=== PATIENT | female | born 1945 | race Caucasian/White ===

== ENCOUNTER → 2024-03-27 | Outpatient (REF) | payer OTHER, MEDICAID ==
[2024-03-27 17:10] LABS: APPEARANCE, URINE HAZY (CLEAR); BACTERIA, URINE AUTO 1+ (NEGATIVE); BILIRUBIN, URINE AUTO NEGATIVE (NEGATIVE); BLOOD, URINE BLOOD NEGATIVE (NEGATIVE); CALCIUM OXALATE CRYSTALS MODERATE; COLOR, URINE AMBER (YELLOW); GLUCOSE, URINE (UA) AUTO NEGATIVE (NEGATIVE); KETONE, URINE AUTO TRACE mg/dL (NEGATIVE); LEUKOCYTE ESTERASE, URINE AUTO 3+ (NEGATIVE); MUCUS, URINE SMALL (NEGATIVE); NITRITE, URINE AUTO NEGATIVE (NEGATIVE); PROTEIN, URINE AUTO 1+ mg/dL (NEGATIVE); RBC, URINE AUTO 4 /HPF (0-3); SQUAMOUS EPITHELIAL CELL UR AU 2 /HPF (0-6); UROBILINOGEN, URINE AUTO 0.2 mg/dL (0.0-2.0); WBC, URINE AUTO 10 /HPF (0-3)
[2024-03-27 17:35] LABS: MAU/CREAT RATIO 22.7 MCG/MG (0.0-30.0)
[2024-03-27 17:59] LABS: ALBUMIN 3.4 G/DL (3.2-5.2); ALKALINE PHOSPHATASE 88 U/L (46-116); ALT/SGPT 14 U/L (7.0-40); AST/SGOT 16 U/L (<34); BASO # 0.1 10^3/uL (0.0-0.2); BILIRUBIN,TOTAL 0.6 MG/DL (0.3-1.2); BLOOD UREA NITROGEN 16 MG/DL (9-23); CALCIUM LEVEL 9.2 MG/DL (8.3-10.6); CARBON DIOXIDE LEVEL 25 MMOL/L (20-31); CHLORIDE LEVEL 105 MMOL/L (98-107); CHOLESTEROL LEVEL 121 MG/DL (<200); CHOLESTEROL RISK RATIO 2.91 (<5); CREATININE FOR GFR 0.77 MG/DL (0.55-1.30); EOS # 0.1 10^3/uL (0.0-0.5); EOS % 1.7 % (0.0-3.0); GLOMERULAR FILTRATION RATE > 60.0 (>39); GLUCOSE, FASTING 75 MG/DL (74-106); HDL CHOLESTEROL 41.5 MG/DL (>40); HEMATOCRIT 36.7 % (36.0-47.0); HEMOGLOBIN 11.7 g/dl (12.0-15.5); LDL CHOLESTEROL 30.3 MG/DL (<100); LYMPH # 1.6 10^3/uL (1.5-5.0); LYMPH % 21.9 % (24.0-44.0); MEAN CORPUSCULAR HEMOGLOBIN 28.4 pg (27.0-33.0); MEAN CORPUSCULAR HGB CONC 31.9 g/dl (32.0-36.5); MEAN CORPUSCULAR VOLUME 89.1 fl (80.0-96.0); MONO # 0.6 10^3/uL (0.0-0.8); MONO % 7.9 % (2.0-8.0); NEUTROPHILS # 4.8 10^3/uL (1.5-8.5); NEUTROPHILS % 67.2 % (36.0-66.0); NON-HDL-C 79.5 MG/DL; PLATELET COUNT, AUTOMATED 295 10^3/uL (150-450); POTASSIUM SERUM 4.9 MMOL/L (3.5-5.1); RED BLOOD COUNT 4.12 10^6/uL (4.00-5.40); SODIUM LEVEL 135 MMOL/L (136-145); TOTAL PROTEIN 6.5 G/DL (5.7-8.2); TRIGLYCERIDES LEVEL 246 MG/DL (<150); WHITE BLOOD COUNT 7.2 10^3/uL (4.0-10.0)
[2024-03-27 18:03] LABS: TOTAL 25(OH) VITAMIN D 32.8 NG/ML (20.0-100.0)
[2024-03-27 18:31] LABS: HEMOGLOBIN A1c 5.4 % (4.0-6.0)
== END ==
LOC: M LAB REF 16:41
PROVIDERS: ATTEND Physician Assistant
DX: I10 Essential (primary) hypertension (principal); Z11.9 Encounter for screening for infectious and parasitic diseases, unspecified; E66.9 Obesity, unspecified; E55.9 Vitamin D deficiency, unspecified; Z79.4 Long term (current) use of insulin

== ENCOUNTER → 2024-06-30 | Outpatient (RCR) | payer MEDICAID, MEDICARE, OTHER | LOC: M PT 06-16 09:28 | PROVIDERS: ATTEND Physician Assistant | DX: R26.89 Other abnormalities of gait and mobility (principal); R26.81 Unsteadiness on feet ==

== ENCOUNTER 2024-07-17 14:27 | Outpatient (RCR) | payer MEDICARE | END 2024-07-31 | LOC: M PT 14:27 | PROVIDERS: ATTEND Physician Assistant | DX: R26.89 Other abnormalities of gait and mobility (principal); R26.81 Unsteadiness on feet ==

== ENCOUNTER 2024-08-15 11:15 | Outpatient (RCR) | payer MEDICARE ==
[2024-08-19] MEDS ORDERED: EQL50TAB2 PO (10:46)
[2024-08-19] MEDS ORDERED: CARB25TA9 PO (10:46)
[2024-08-19] MEDS ORDERED: BENEPOW18 PO (10:46)
[2024-08-19] MEDS ORDERED: BUSP5TA PO (10:46)
[2024-08-19] MEDS ORDERED: JANU50TA8 PO (10:46)
[2024-08-19] MEDS ORDERED: BENZ0.5T2 PO (10:46)
[2024-08-19] MEDS ORDERED: CARV6.25 PO (10:46)
[2024-08-19] MEDS ORDERED: OCUVTAB4 PO (10:46)
[2024-08-19] MEDS ORDERED: LIPI20TA PO (10:46)
[2024-08-19] MEDS ORDERED: ROPI1TAB73 PO (10:46)
[2024-08-19] MEDS ORDERED: CALC600T60 PO (10:46)
[2024-08-19] MEDS ORDERED: LAMO200T3 PO (10:46)
[2024-08-19] MEDS ORDERED: QUET1TAB17 PO (10:46)
[2024-08-19] MEDS ORDERED: ATOR40TA75 PO (10:46)
[2024-08-19] MEDS ORDERED: VITA50TA43 PO (10:46)
[2024-08-19] MEDS ORDERED: NIFE1TAB51 PO (10:46)
[2024-08-19] MEDS ORDERED: ACET-897 PO (10:46)
[2024-08-19] MEDS ORDERED: PROZ40CA PO (10:46)
[2024-08-19] MEDS ORDERED: VALS1TAB66 PO (10:46)
[2024-08-19] MEDS ORDERED: TRAZ-252 PO (10:46)
== END 2024-08-30 ==
LOC: M PT 11:15
PROVIDERS: ATTEND Physician Assistant
DX: G20.C Parkinsonism, unspecified (principal); M54.50 Low back pain, unspecified; R25.1 Tremor, unspecified; R26.89 Other abnormalities of gait and mobility

== ENCOUNTER 2024-08-20 08:52 | Day surgery (SDC) | payer MEDICARE, OTHER ==
[~2024-08-20] VITALS: Ht 170.2 cm; Wt 82.1 kg
[~2024-08-20 08:52] MED LIST: ACET-897 PO; ATOR40TA75 PO; BENEPOW18 PO; BENZ0.5T2 PO; BUSP5TA PO; CALC600T60 PO; CARB25TA9 PO; CARV6.25 PO; EQL50TAB2 PO; JANU50TA8 PO; LAMO200T3 PO; LIPI20TA PO; NIFE1TAB51 PO; OCUVTAB4 PO; PROZ40CA PO; QUET1TAB17 PO; ROPI1TAB73 PO; TRAZ-252 PO; VALS1TAB66 PO; VITA50TA43 PO
[2024-08-20] MEDS: TROPICAMIDE 1% OPHTH SOLN 15ML OD SCH (10:01)
[2024-08-20] MEDS: OFLOXACIN 0.3 % (OCUFLOX) OPTH SOL 5ML OD ONE (10:01)
[2024-08-20] MEDS: PHENYLEPHRINE 2.5% OPHTH SOL 2ML OD SCH (10:01)
[2024-08-20] MEDS: LIDOCAINE 3.5 % 1ML OPHTH TOPICAL GEL OU ONE (10:01)
[2024-08-20] MEDS: PHENYLEPHRINE 10% OPHTH SOL 5ML OD PRN (10:01)
[2024-08-20] MEDS: ATROPINE SULFATE 1% OPHTH SOLN 2ML BTL OD SCH (10:01)
[2024-08-20] MEDS ORDERED: MIDAZOLAM INJ 2MG/2ML VIAL As Ordered ONE (10:25)
[2024-08-20] MEDS ORDERED: fentaNYL 100 MCG/2 ML INJECTION As Ordered ONE (10:25)
[2024-08-20] MEDS: CEFUROXIME 1MG/0.1ML INTRACAMERAL INJ As Ordered ONE (11:28)
[2024-08-20] MEDS: BSS IRRIG/VANCO(10MG)/TOBRA(5MG)/EPINEPH(1:1000-0.5CC)500ML BAG-ORONLY As Ordered ONE (11:28)
[2024-08-20] MEDS: LIDOCAINE 1% SDV 5ML VIAL As Ordered ONE (11:28)
[2024-08-20 11:45] VITALS: BP 160/73; TEMP 97.5; O2SAT 96
== END 2024-08-20 12:23 | disposition home or self-care (01) ==
LOC: M SDC 08:52
PROVIDERS: ATTEND Ophthalmology
DX: H25.11 Age-related nuclear cataract, right eye (principal); E03.9 Hypothyroidism, unspecified; I10 Essential (primary) hypertension; K76.0 Fatty (change of) liver, not elsewhere classified; G43.909 Migraine, unspecified, not intractable, without status migrainosus; Z79.890 Hormone replacement therapy; Z79.899 Other long term (current) drug therapy; Z87.891 Personal history of nicotine dependence; Z88.8 Allergy status to other drugs, medicaments and biological substances; Z91.048 Other nonmedicinal substance allergy status; Z88.7 Allergy status to serum and vaccine; Z86.16 Personal history of COVID-19
CPT/HCPCS: 66984; 92015; J0697; J2250; J3010; V2632

== ENCOUNTER 2024-09-10 09:00 | Day surgery (SDC) | payer MEDICARE, OTHER ==
[~2024-09-10] VITALS: Ht 171.4 cm; Wt 81.6 kg
[~2024-09-10 09:00] MED LIST changes: +MIDAZOLAM INJ 2MG/2ML VIAL As Ordered ONE; +PHENYLEPHRINE 10% OPHTH SOL 5ML OS PRN
[2024-09-10] MEDS: OFLOXACIN 0.3 % (OCUFLOX) OPTH SOL 5ML OS ONE (10:25)
[2024-09-10] MEDS: LIDOCAINE 3.5 % 1ML OPHTH TOPICAL GEL OU ONE (10:25)
[2024-09-10] MEDS: TROPICAMIDE 1% OPHTH SOLN 15ML OS SCH (10:36)
[2024-09-10] MEDS: CYCLOPENTOLATE 1% OPHTH SOLN 2ML BTL OS SCH (10:36)
[2024-09-10] MEDS: PHENYLEPHRINE 2.5% OPHTH SOL 2ML OS SCH (10:36)
[2024-09-10] MEDS ORDERED: GLUCOSE 4 GM CHEW PO PRN (10:45)
[2024-09-10] MEDS ORDERED: GLUCAGON INJ 1MG VIAL SC PRN (10:45)
[2024-09-10] MEDS ORDERED: INSULIN LISPRO (NovoLOG) PER UNIT SC PRN (10:45)
[2024-09-10] MEDS ORDERED: DEXTROSE 50% 50ML SYRINGE IV PRN (10:45)
[2024-09-10] MEDS: BSS IRRIG/VANCO(10MG)/TOBRA(5MG)/EPINEPH(1:1000-0.5CC)500ML BAG-ORONLY As Ordered ONE (12:36)
[2024-09-10] MEDS: LIDOCAINE 1% SDV 5ML VIAL As Ordered ONE (12:37)
[2024-09-10] MEDS: CEFUROXIME 1MG/0.1ML INTRACAMERAL INJ As Ordered ONE (12:37)
[2024-09-10 12:50] VITALS: BP 179/75; TEMP 96.9; O2SAT 97
== END 2024-09-10 13:10 | disposition home or self-care (01) ==
LOC: M SDC 09:00
PROVIDERS: ATTEND Ophthalmology
DX: E11.36 Type 2 diabetes mellitus with diabetic cataract (principal); H25.12 Age-related nuclear cataract, left eye; I10 Essential (primary) hypertension; E78.00 Pure hypercholesterolemia, unspecified; G47.30 Sleep apnea, unspecified; Z79.899 Other long term (current) drug therapy; Z79.84 Long term (current) use of oral hypoglycemic drugs; Z98.84 Bariatric surgery status; Z90.89 Acquired absence of other organs; Z88.5 Allergy status to narcotic agent; Z88.2 Allergy status to sulfonamides; Z88.8 Allergy status to other drugs, medicaments and biological substances
CPT/HCPCS: 66984; 92015; J0697; J2250; V2632

== ENCOUNTER → 2025-05-10 | Outpatient (CLI) | payer MEDICARE, OTHER ==
[~2025-05-10] MED LIST changes: -EQL50TAB2 PO; -MIDAZOLAM INJ 2MG/2ML VIAL As Ordered ONE; -PHENYLEPHRINE 10% OPHTH SOL 5ML OS PRN; +VITA1TAB82 PO
== END ==
LOC: M RAD 10:55
PROVIDERS: ATTEND Student in an Organized Health Care Education/Training Program
DX: M54.50 Low back pain, unspecified (principal)

== ENCOUNTER 2025-05-20 07:59 | Emergency (ER) | payer MEDICARE, OTHER ==
[~2025-05-20] VITALS: Ht 171.4 cm; Wt 86.4 kg
[2025-05-20] MEDS ORDERED: TRAZ-186 PO (08:56)
[2025-05-20] MEDS ORDERED: SERO1TAB3 PO (08:56)
[2025-05-20] MEDS ORDERED: LANTINJ4 SC (08:57)
[2025-05-20 10:30] VITALS: BP 135/78
[2025-05-20] MEDS: ACETAMINOPHEN *IV* 1,000 MG in IV 1 EA IV ONE (10:31)
[2025-05-20] MEDS: METHOCARBAMOL 1,000 MG/10 ML VIAL IV ONE (10:31)
[2025-05-20 11:40] VITALS: O2SAT 97
[2025-05-20] MEDS: MORPHINE 4 MG/ML 1 ML VIAL IV ONE (11:40)
[2025-05-20 11:46] VITALS: TEMP 97.5
== END 2025-05-20 12:44 | disposition home or self-care (01) ==
LOC: M ED 07:59
DX: M48.062 Spinal stenosis, lumbar region with neurogenic claudication (principal); E11.9 Type 2 diabetes mellitus without complications; I10 Essential (primary) hypertension; Z98.84 Bariatric surgery status; Z88.2 Allergy status to sulfonamides; Z88.8 Allergy status to other drugs, medicaments and biological substances; Z90.49 Acquired absence of other specified parts of digestive tract; Z79.02 Long term (current) use of antithrombotics/antiplatelets; Z79.1 Long term (current) use of non-steroidal anti-inflammatories (NSAID); Z79.899 Other long term (current) drug therapy
CPT/HCPCS: 96374; 96375; 99284; J0131; J2800